=== PATIENT | female | born 1950 | race Caucasian/White ===

== ENCOUNTER 2016-05-01 18:19 | Emergency (ER) | payer OTHER ==
[~2016-05-01] VITALS: Ht 121.9 cm; Wt 97.1 kg
[~2016-05-01 18:19] MED LIST: CELE200C PO; CETI10TA22 PO; DIVA500T2 PO; ESTR1TAB13 PO; LEVO112T4 PO; LISI10TA PO; PANT40TA3 PO; SUMA50TA3 PO
[2016-05-01 18:33] VITALS: BP 167/87
--- NOTE | 2016-05-01 18:41 | PHYS DOC ---
Past Medical History Past Medical History: GERD, Hypothyroid, Migraines, Seizure Past Surgical History: Cholecystectomy, Tonsillectomy, Other Additional Past Surgical Histo: thyroid Alcohol Use: Rarely Drug Use: None Adult General Chief Complaint Chief Complaint: INSECT BITE [facility] HPI Patient is a 65 year old female who presents emergency room with complaint of a bee sting to her tongue that happened proximal part of my physical exam. Patient denies any sensation of throat swelling or shortness of breath. She denies any rash/itching of her skin. Patient denies any history of atopy. She denies any previous episodes of anaphylaxis or angioedema. Review of Systems Review of Systems Constitutional: Denies fever or chills [] Eyes: Denies change in visual acuity, redness, or eye pain [] HENT: Denies nasal congestion or sore throat [] Respiratory: Denies cough or shortness of breath [] Cardiovascular: No additional information not addressed in HPI [] GI: Denies abdominal pain, nausea, vomiting, bloody stools or diarrhea [] : Denies dysuria or hematuria [] Musculoskeletal: Denies back pain or joint pain [] Integument: Denies rash or skin lesions [] Neurologic: Denies headache, focal weakness or sensory changes [] Endocrine: Denies polyuria or polydipsia [] Current Medications Current Medications Current Medications Medications (Trade) Dose Ordered Sig/Nirav Start Time Stop Time Status Last Admin Dose Admin Diphenhydramine HCl (Benadryl) 25 mg 1X ONCE 05/01/16 19:00 05/01/16 19:01 DC 05/01/16 18:50 25 MG Famotidine (Pepcid) 20 mg 1X ONCE 05/01/16 19:00 05/01/16 19:01 DC 05/01/16 18:50 20 MG Prednisone (Prednisone) 40 mg 1X ONCE 05/01/16 19:00 05/01/16 19:01 DC 05/01/16 18:50 40 MG Allergies Allergies Allergies Coded Allergies Type Severity Reaction Last Updated Verified phenobarbital Allergy Intermediate 02/01/14 No chlorpheniramine Allergy Mild Swelling 02/02/14 Yes phenylpropanolamine Allergy Mild Swelling 02/02/14 Yes Physical Exam Physical Exam Constitutional: Well developed, well nourished, no acute distress, non-toxic appearance. [] HENT: Normocephalic, atraumatic, bilateral external ears normal, oropharynx moist, no oral exudates, nose normal. There is no trismus or muffled speech. There is no appreciable swelling to the patient's tongue. There is no swelling the posterior oropharynx. Eyes: PERRLA, EOMI, conjunctiva normal, no discharge. [] Neck: Normal range of motion, no tenderness, supple, no stridor. Cardiovascular:Heart rate regular rhythm, no murmur [] Lungs & Thorax: Bilateral breath sounds clear to auscultation [] Abdomen: Bowel sounds normal, soft, no tenderness, no masses, no pulsatile masses. [] Skin: Warm, dry, no erythema, no rash. [] Back: No tenderness, no CVA tenderness. [] Extremities: No tenderness, no cyanosis, no clubbing, ROM intact, no edema. [] Neurologic: Alert and oriented X 3, normal motor function, normal sensory function, no focal deficits noted. [] Psychologic: Affect normal, judgement normal, mood normal. [] Current Patient Data Vital Signs Vital Signs Date Time Temp Pulse Resp B/P Pulse Ox O2 Delivery O2 Flow Rate FiO2 05/01/16 18:33 97.4 58 18 5 Room Air 97.4 EKG EKG [] Radiology/Procedures Radiology/Procedures [] Course & Med Decision Making Course & Med Decision Making Patient received 25 mg of Benadryl, 20 mg of Pepcid and 40 mg of prednisone by mouth. Patient was observed for a period of time after receiving the medication. She has had no adverse events. There was no swelling and patient's oropharynx at time of discharge. Dragon Disclaimer Dragon Disclaimer This electronic medical record was generated, in whole or in part, using a voice recognition dictation system. Departure Departure Impression: Primary Impression: Insect sting Condition: IMPROVED Referrals: DOUG GARCIA MD (PCP) Patient Instructions: Bee, Wasp, or Hornet Sting Additional Instructions: 1. There is no evidence of an anaphylactic reaction here today. 2. Take the medication as prescribed for the next 4 days. You can take over-the- counter Benadryl, 25 mg, every 6 hours. 3. Review the discharge instructions provided for reasons to return the emergency department. 4. Contact primary care doctor's office tomorrow morning to schedule follow-up appointment if there are any questions or concerns. Scripts Prednisone 20 Mg Tablet2 Tab PO DAILY 4 Days Prov:MARY KAY ANDRADE 05/01/16 Famotidine (Pepcid)20 Mg [id number] Mg PO BID 4 Days Prov:MARY KAY ANDRADE 05/01/16 MARY KAY ANDRADE May 01, 2016 18:41
[2016-05-01] MEDS ORDERED: PREDNISONE 20 MG TABLET PO ONE (19:00)
[2016-05-01] MEDS ORDERED: FAMOTIDINE 20 MG TABLET. PO ONE (19:00)
[2016-05-01] MEDS ORDERED: DIPHENHYDRAMINE HCL 25 MG CAPSULE PO ONE (19:00)
[2016-05-01] MEDS ORDERED: FAMO-63 PO (19:24)
[2016-05-01] MEDS ORDERED: PRED20TA PO (19:24)
== END 2016-05-01 20:01 | disposition home or self-care (01) ==
LOC: ER 18:19
DX: T63.481A Toxic effect of venom of other arthropod, accidental (unintentional), initial encounter (principal); K21.9 Gastro-esophageal reflux disease without esophagitis; E03.9 Hypothyroidism, unspecified; G43.909 Migraine, unspecified, not intractable, without status migrainosus; Z88.8 Allergy status to other drugs, medicaments and biological substances; Y92.89 Other specified places as the place of occurrence of the external cause
CPT/HCPCS: 99284; J7512; Q0163

== ENCOUNTER → 2017-05-08 | Outpatient (CLI) | payer MEDICARE | END | disposition home or self-care (01) | LOC: SLPLAB 19:53 | DX: G47.34 Idiopathic sleep related nonobstructive alveolar hypoventilation (principal) | CPT/HCPCS: 95810 ==

== ENCOUNTER → 2017-05-22 | Outpatient (CLI) | payer MEDICARE | END | disposition home or self-care (01) | LOC: KCIC US 12:47 | DX: R31.29 Other microscopic hematuria (principal) | CPT/HCPCS: 76770 ==

== ENCOUNTER → 2018-01-01 | Outpatient (CLI) | payer MEDICARE ==
[2016-08-22 10:09] VITALS: BP 140/64
[~2018-01-01] MED LIST changes: +FAMO-63 PO; +PRED20TA PO
--- NOTE | 2018-01-01 15:29 | RAD ---
Chest, 2 views, 01/01/2018: HISTORY: Wheezing There is a small electronic device projected over the anterior aspect of the left lower chest. The heart size and pulmonary vascularity are normal. There is mild tortuosity of the thoracic aorta. No pulmonary infiltrate is seen. There is no evidence of pleural fluid. Moderate spurring is present in the spine. IMPRESSION: No acute cardiopulmonary abnormality is detected. Electronically signed by: Abdiel Sanabria MD (01/01/2018 3:25 PM) [facility]
--- NOTE | 2018-01-01 18:02 | RAD ---
Left lower extremity venous duplex study 01/01/2018 Clinical History: Left leg swelling. Technique: Using a combination of real time ultrasound imaging and color-flow and pulse Doppler imaging techniques along with graded compression and augmentation, duplex evaluation of the deep venous system of the left lower extremity was performed. Multiple images were obtained. Findings: There is no sonographic evidence of deep venous thrombosis involving the visualized deep venous structures of the left lower extremity. Impression: Negative study. Electronically signed by: Marlon Winchester MD (01/01/2018 5:58 PM) [id number]
== END | disposition home or self-care (01) ==
LOC: US 12:55
PROVIDERS: ATTEND Family Medicine
DX: R60.0 Localized edema (principal); R06.2 Wheezing
CPT/HCPCS: 71046; 93971

== ENCOUNTER → 2018-09-10 | Outpatient (CLI) | payer MEDICARE ==
[2016-08-22 10:09] VITALS: BP 140/64
[~2018-09-10] MED LIST changes: -PANT40TA3 PO; +PANT40TA77 PO
--- NOTE | 2018-09-10 13:11 | KCIC ---
EXAMINATION: Magnetic resonance imaging (MRI) of the brain and brainstem without contrast 09/10/2018 11:00 AM HISTORY: Visual changes. Flashes in the left eye. History of prior CVA. TECHNIQUE: Multiplanar multi-weighted MRI of the brain and brainstem was performed without intravenous contrast using the seizure protocol. COMPARISON: MRI brain February 02, 2014 FINDINGS: The scalp and calvarium are normal. The superior sagittal sinus demonstrates normal venous flow. The corpus callosum is normal in shape and signal intensity. The posterior fossa is unremarkable. The pituitary and sella are normal. The brainstem and craniocervical junction are unremarkable. Hippocampi are symmetric in signal intensity and morphology. There is no evidence for heterotopic leon matter.. No findings to suggest confirmation of cortical development. Subcortical T2 signal hyperintensity in the left middle frontal gyrus may be associated with mild chronic small vessel ischemic changes. Diffusion weighted images reveal no hyperintensities to suggest acute cerebral infarction. The susceptibility weighted sequences reveal no evidence of acute or chronic hemorrhage. The ventricles are normal in size and position without evidence of hydrocephalus. The paranasal sinuses are normal. The visualized portions of the mastoids are unremarkable. The orbits appear normal with the exception of bilateral lens placement. Normal flow voids are demonstrated in the carotid arteries and basilar artery. IMPRESSION: 1. No evidence for acute or subacute ischemia. 2. Hippocampi are symmetric in signal intensity and morphology. 3. Subcortical foci of T2 signal hyperintensity in the left middle frontal gyrus most favor underlying small vessel ischemic changes. Findings are atypical for a malformation of cortical development. Electronically signed by: Virginia Rojas MD (09/10/2018 1:08 PM) [id number]
== END | disposition home or self-care (01) ==
LOC: KCIC MRI 10:48
PROVIDERS: ATTEND Family Medicine
DX: H53.9 Unspecified visual disturbance (principal); Z86.73 Personal history of transient ischemic attack (TIA), and cerebral infarction without residual deficits
CPT/HCPCS: 70551